=== PATIENT | male | born 1960 | race Caucasian/White ===

== ENCOUNTER 2017-03-28 13:04 | Observation (INO) | payer SELFPAY ==
[2017-03-28] VITALS (9 sets, daily range): BP systolic 147–182; BP diastolic 80–99; PULSE 75–92; RESP 14–20; TEMP 98.1–99; O2SAT 94–99
[~2017-03-28 13:04] MED LIST: ZITH250T PO
--- NOTE | 2017-03-28 13:23 | PD ---
Physical Exam Time Seen by Provider: 13:23 Narrative 56 y/o male with h/a for one week as well as sob and "rapid heart beat" intermittently for the past several days Vital signs reviewed. Seen at triage desk. Awaiting bed placement. Data Data Last Documented VS Vital Signs Date Time Temp Pulse Resp B/P Pulse Ox O2 Delivery O2 Flow Rate FiO2 03/28/17 13:06 98.4 88 20 182/88 99 Room Air [facility] Medical Record Reviewed: Yes Supervised Visit with STELLA: No Johnny Melton Mar 28, 2017 13:23
--- NOTE | 2017-03-28 15:08 | PD ---
HPI Chief Complaint: Headache Time Seen by Provider: 14:41 Travel History International Travel<30 days: No Contact w/Intl Traveler<30days: No Traveled to known affect area: No History of Present Illness HPI 56-year-old male came to the emergency room with history of headache and feeling weak over the past 1 week. Patient says the headache is not severe but just constantly there. It's kind of a fogginess in his head. Today he started getting some palpitations and left-sided chest pain without any radiation. He usually does not get headaches and usually is a very healthy person. However this has been bothering him and finally decided to come to the emergency room to be checked out. He does not have a primary care doctor. He remembers when the headache started he was at work and it was 3 out of 10. It stayed 3 out of 10 since then. He was just sitting and working at the desk. He has been nauseous to some extent but did not vomit. He feels like he is hungry but doesn 't have an appetite. His vital signs were stable. No history of fever, photophobia or neck stiffness. FORMERLY [facility] Past Medical History Narrative Medical List of his past medical, surgical, social and family history is reviewed from the nursing note. Past Surgical History Thoracic Surgery: Yes (JAW SX, L KNEE SCOPE ) Social History Alcohol Use: Yes (SIX PACK DAILY) Tobacco Use: Yes Substance Use: Yes (POT OCC) Allergies-Medications (Allergen,Severity, Reaction): Coded Allergies: Codeine (Verified Allergy, Mild, 03/28/17) Comments List of his allergies reviewed from the nursing note. Reported Meds & Prescriptions Reported Meds & Active Scripts Active Narrative Medication List of his home medications reviewed from the nursing note. Review of Systems Except as stated in HPI: all other systems reviewed are Neg Physical Exam Narrative GENERAL: Awake, alert, mild distress SKIN: Focused skin assessment warm/dry. HEAD: Atraumatic. Normocephalic. EYES: Pupils equal and round. No scleral icterus. No injection or drainage. ENT: No nasal bleeding or discharge. Mucous membranes pink and moist. NECK: Trachea midline. No JVD. CARDIOVASCULAR: Regular rate and rhythm. No murmur appreciated. RESPIRATORY: No accessory muscle use. Clear to auscultation. Breath sounds equal bilaterally. GASTROINTESTINAL: Abdomen soft, non-tender, nondistended. Hepatic and splenic margins not palpable. MUSCULOSKELETAL: No obvious deformities. No clubbing. No cyanosis. No edema. NEUROLOGICAL: Awake and alert. No obvious cranial nerve deficits. Motor grossly within normal limits. Normal speech. PSYCHIATRIC: Appropriate mood and affect; insight and judgment normal. Data Data Last Documented VS Vital Signs Date Time Temp Pulse Resp B/P Pulse Ox O2 Delivery O2 Flow Rate FiO2 03/28/17 17:07 88 15 162/88 98 Room Air 03/28/17 13:06 98.4 Orders Complete Blood Count With Diff (03/28/17 15:12) Basic Metabolic Panel (Bmp) (03/28/17 15:12) Prothrombin Time / Inr (Pt) (03/28/17 15:12) Ct Brain W/O Iv Contrast(Rout) (03/28/17 15:12) Ecg Monitoring (03/28/17 15:12) Iv Access Insert/Monitor (03/28/17 15:12) Oximetry (03/28/17 15:12) Sodium Chloride 0.9% Flush (Ns Flush) (03/28/17 15:15) Prochlorperazine Inj (Compazine Inj) (03/28/17 15:15) Sodium Chlorid 0.9% 500 Ml Inj (Ns 500 M (03/28/17 15:15) Troponin I (03/28/17 15:17) Electrocardiogram (03/28/17 14:36) Admit Order (Ed Use Only) (03/28/17 17:26) Place In Observation (03/28/17:26) Activity Bed Rest With Brp (03/28/17 17:26) Vital Signs (Adult) Q4H (03/28/17 17:) Cardiac Rhythm .As Directed (03/28/17 17:26) Notify Dr: Other .PRN (03/28/17:) Notify Parameters (03/28/17:) Resp Oxygen Nasal Cannula (03/28/17 ) Diet Heart Healthy (03/28/17 Dinner) Ckmb (Isoenzyme) Profile (03/28/17 17:26) Ckmb (Isoenzyme) Profile (03/28/17 20:) Troponin I (03/28/17:) Troponin I (7/20/17 20:26) Electrocardiogram (03/28/17 17:26) Electrocardiogram (03/28/17 20:26) ^ Obtain (03/28/17 17:26) Sodium Chloride 0.9% Flush (Ns Flush) (03/28/17 17:30) Sodium Chloride 0.9% Flush (Ns Flush) (03/28/17 21:00) Acetaminophen (Tylenol) (03/28/17 17:30) Ondansetron Inj (Zofran Inj) (03/28/17 17:30) Nitroglycerin Sl (Nitrostat Sl) (03/28/17 17:30) Real Time Trader / Telemetry ANAHY.Q8H (03/28/17 17:26) CKMB (03/28/17 18:00) CKMB% (03/28/17 18:00) CKMB (03/28/17 20:50) CKMB% (03/28/17 20:50) Labs Laboratory Tests Test 03/28/17 03/28/17 15:33 15:35 Troponin I 0.02 NG/ML White Blood Count 4.0 TH/MM3 Red Blood Count 4.29 MIL/MM3 Hemoglobin 14.6 GM/DL Hematocrit 42.3 % Mean Corpuscular Volume 98.6 FL Mean Corpuscular Hemoglobin 34.1 PG Mean Corpuscular Hemoglobin 34.5 % Concent Red Cell Distribution Width 13.6 % Platelet Count 126 TH/MM3 Mean Platelet Volume 7.0 FL Neutrophils (%) (Auto) 56.5 % Lymphocytes (%) (Auto) 26.0 % Monocytes (%) (Auto) 16.0 % Eosinophils (%) (Auto) 0.5 % Basophils (%) (Auto) 1.0 % Neutrophils # (Auto) 2.2 TH/MM3 Lymphocytes # (Auto) 1.0 TH/MM3 Monocytes # (Auto) 0.6 TH/MM3 Eosinophils # (Auto) 0.0 TH/MM3 Basophils # (Auto) 0.0 TH/MM3 CBC Comment DIFF FINAL Differential Comment Prothrombin Time 10.6 SEC Prothromb Time International 1.0 RATIO Ratio Sodium Level 136 MEQ/L Potassium Level 3.7 MEQ/L Chloride Level 97 MEQ/L Carbon Dioxide Level 29.0 MEQ/L Anion Gap 10 MEQ/L Blood Urea Nitrogen 6 MG/DL Creatinine 0.65 MG/DL Estimat Glomerular Filtration 128 ML/MIN Rate Random Glucose 69 MG/DL Calcium Level 8.8 MG/DL [facility] Medical Decision Making Medical Screen Exam Complete: Yes Emergency Medical Condition: Yes Medical Record Reviewed: Yes Interpretation(s) Twelve-lead EKG was reviewed by me. Sinus rhythm, LVH by voltage criteria, peaked T waves. Heart rate of 68 bpm. Differential Diagnosis Subarachnoid hemorrhage, ACS, non-STEMI, nonspecific headache Narrative Course 5:22 PM blood test results of back and patient has low glucose. The nurses has gone to give him some crackers and orange juice and repeat the blood sugar. Rest of the blood test has come back to be within normal limit. Head CT is within normal limit. Given his chest pain I would prefer to admit him to the chest pain center. His risk factor is his age and smoking history. Procedures EKG Prior to Arrival: No Diagnosis Primary Impression: Chest pain Qualified Code: R07.9 - Chest pain, unspecified type Additional Impressions: Headache Qualified Code: R51 - Acute intractable headache, unspecified headache type Hypoglycemia Admitting Information Admitting Physician Requests: Observation Scripts Lisinopril 10 Mg Tab10 Mg PO DAILY #30 TAB Ref 0 Prov:Patricio Dorado 03/29/17 Uzair Griffith MD Mar 28, 2017 15:08
[2017-03-28] MEDS ORDERED: SODIUM CHLORID 0.9% 500 ML INJ 500 ML IV ONE (15:15)
[2017-03-28] MEDS ORDERED: PROCHLORPERAZINE INJ 10 MG/2 ML VIAL IVP ONE (15:15)
[2017-03-28] MEDS ORDERED: SODIUM CHLORIDE 0.9% FLUSH 10 ML FLUSH IVF PRN (15:15)
[2017-03-28 16:17] LABS: AUTOMATED NEUTROPHIL # 2.2 TH/MM3 (1.8-7.7); EOSINOPHIL % 0.5 % (0.0-4.0); HEMATOCRIT 42.3 % (39.0-51.0); HEMO FLAGS DIFF FINAL; MEAN CELL VOLUME 98.6 FL (80.0-100.0); MEAN CORPUSCULAR HEMOGLOBIN 34.1 PG (27.0-34.0); MEAN CORPUSCULAR HGB CONC 34.5 % (32.0-36.0); NEUT % 56.5 % (16.0-70.0); PLATELET COUNT 126 TH/MM3 (150-450); RED BLOOD COUNT 4.29 MIL/MM3 (4.50-5.90); RED CELL DISTRIBUTION WIDTH 13.6 % (11.6-17.2)
--- NOTE | 2017-03-28 16:25 | RADRPT ---
EXAM DATE/TIME: 03/28/2017 16:11 [facility] COMPARISON: No previous studies available for comparison. INDICATIONS : Headaches with shortness of breath,numbness in arms. RADIATION DOSE: 40.32 CTDIvol (mGy) MEDICAL HISTORY : None SURGICAL HISTORY : Throat sx. ENCOUNTER: Initial ACUITY: 1 day PAIN SCALE: 3/10 LOCATION: Bilateral cranial TECHNIQUE: Multiple contiguous axial images were obtained of the head. Using automated exposure control and adj ustment of the mA and/or kV according to patient size, radiation dose was kept as low as reasonably a chievable to obtain optimal diagnostic quality images. DICOM format image data is available electro nically for review and comparison. FINDINGS: CEREBRUM: The ventricles are normal for age. No evidence of midline shift, mass lesion, hemorrhage or acute in farction. No extra-axial fluid collections are seen. POSTERIOR FOSSA: The cerebellum and brainstem are intact. The 4th ventricle is midline. The cerebellopontine angle i s unremarkable. EXTRACRANIAL: The visualized portion of the orbits is intact. SKULL: The calvaria is intact. No evidence of skull fracture. CONCLUSION: Normal examination. Dima Harry MD on March 28, 2017 at 16:23 Board Certified Radiologist. This report was verified electronically.
[2017-03-28 16:38] LABS: PROTHROMBIN TIME - PATIENT 10.6 SEC (9.8-11.6)
[2017-03-28 16:41] LABS: POTASSIUM 3.7 MEQ/L (3.5-5.1)
[2017-03-28] MEDS ORDERED: SODIUM CHLORIDE 0.9% FLUSH 10 ML FLUSH IV FLUSH PRN (17:30)
[2017-03-28] MEDS ORDERED: NITROGLYCERIN 0.4 MG SL 25 TABS/BTL SL PRN (17:30)
[2017-03-28] MEDS ORDERED: ACETAMINOPHEN 500 MG CPLT PO PRN (17:30)
[2017-03-28] MEDS ORDERED: ONDANSETRON HCL 4 MG/2 ML VIAL IV PRN (17:30)
[2017-03-28] MEDS ORDERED: ALPRAZolam 0.25 MG TAB PO ONE (17:45)
[2017-03-28 20:12] LABS: CKMB 9.8 NG/ML (0.5-3.6)
[2017-03-28] MEDS: SODIUM CHLORIDE 0.9% FLUSH 10 ML FLUSH IV FLUSH SCH (22:04)
[2017-03-28 22:19] LABS: CKMB 8.6 NG/ML (0.5-3.6)
[2017-03-29 00:30] VITALS: PULSE 79
[2017-03-29 03:48] VITALS: PULSE 62
[2017-03-29 05:36] VITALS: BP 156/94; PULSE 89; RESP 18; TEMP 98.4; O2SAT 98
[2017-03-29 07:54] VITALS: BP 159/86; PULSE 68; RESP 18; TEMP 98.4; O2SAT 95
--- NOTE | 2017-03-29 08:12 | HHI.HP ---
HPI Primary Care Physician No Primary Care Physician Chief Complaint Chest pain History of Present Illness Is is a 56-year-old male that presents to ED via private vehicle primary complaint at this time of chest discomfort. However he states that he been having a headache and feeling short of breath a week prior. This is not related to exertion. At the time he was having a discomfort in his chest. He states that yesterday morning he looked a left-sided sharp discomfort in his chest. It is in the upper chest. It lasted a few minutes. It was not associated with shortness of breath. There is no nausea diaphoresis. Rate is a 5 out of 10. It did not recur. He decided abnormal to come to the ED to seek further evaluation. Denies recent illness. Denies recent travel. Denies fevers chills. Review of Systems General: Patient denies fevers, chills recent, and recent travel HEENT: He had a headache. Denies sore throat, difficulty swallowing. Cardiovascular: Has the chest discomfort as mentioned above. Denies sensation of heart beating rapidly or irregularly. No syncope. Denies diaphoresis. Respiratory: Intermittent shortness of breath. Denies inspirational chest discomfort. Denies coughing wheezing or hemoptysis. GI: Patient denies nausea, vomiting, diarrhea, abdominal pain, bloody stools. Musculoskeletal: Patient denies joint pain or edema. Denies calf pain or edema. Neurovascular: Patient denies numbness, tingling, weakness in extremities. Denies headache. Endocrine: Denies polyuria and polydipsia. Hematologic: Denies easy bruising. Skin: Denies rash or itching. Past Family Social History Allergies: Coded Allergies: Codeine (Verified Allergy, Mild, 03/28/17) Past Medical History Tobacco abuse. Denies hypertension, hyperlipidemia, diabetes, and CAD. Past Surgical History Noncontributory. Reported Medications Reported Meds & Active Scripts Active No Active Prescriptions or Reported Medications Active Ordered Medications Current Medications Medications (Trade) Dose Ordered Sig/Oliver Route Start Time Stop Time Status Last Admin (NS Flush) 2 ml UNSCH PRN IVF 03/28/17 15:15 03/28/17 15:36 (NS Flush) 2 ml UNSCH PRN IV FLUSH 03/28/17 17:30 (NS Flush) 2 ml BID IV FLUSH 03/28/17 21:00 03/28/17 22:04 (Tylenol) 500 mg Q4H PRN PO 03/28/17 17:30 (Zofran Inj) 4 mg Q6H PRN IV 03/28/17 17:30 (Nitrostat Sl) 0.4 mg Q5M PRN SL 03/28/17 17:30 Family History Denies family history of CAD. Social History Patient smokes a couple cigarettes a day. Has on average 6 beers per day. Occasional marijuana. Physical Exam Vital Signs Vital Signs Date Time Temp Pulse Resp B/P Pulse Ox O2 Delivery O2 Flow Rate FiO2 03/29/17 05:36 98.4 89 18 156/94 98 03/29/17 03:48 62 03/29/17 00:30 79 03/28/17 23:45 164/84 03/28/17 23:36 98.1 83 18 166/99 97 03/28/17 21:15 75 03/28/17 20:56 99.0 84 14 147/87 94 03/28/17 20:28 98.1 92 18 165/80 95 Room Air 03/28/17 18:14 96 21 03/28/17 17:07 88 15 162/88 98 Room Air 03/28/17 14:45 98 Room Air 03/28/17 13:06 98.4 88 20 182/88 99 Room Air Physical Exam GENERAL: This is a well-nourished, well-developed patient, in no apparent distress. Patient speaks in clear complete sentences. Patient is pleasant. HEENT: Head is atraumatic and normocephalic. Neck is supple without lymphadenopathy and trachea is midline. No JVD or carotid bruits. CARDIOVASCULAR: Regular rate and rhythm without murmurs, gallops, or rubs. RESPIRATORY: Clear to auscultation. Breath sounds equal bilaterally. No wheezes , rales, or rhonchi. Chest wall is nontender. No use of accessory muscles. GASTROINTESTINAL: Abdomen is nontender, nondistended. Abdomen soft. No obvious pulsatile mass or bruit. No CVA tenderness. Strong femoral pulses bilaterally. Normal bowel sounds in all quadrants. MUSCULOSKELETAL: Patient is moving upper and lower extremities freely. No calf tenderness or edema, no Homans sign. Strong pulses in upper and lower extremities. NEUROLOGICAL: Patient is alert and oriented. Cranial nerves 2-12 are grossly intact. No focal deficits and speech is clear. SKIN: No rash and turgor is normal. Laboratory Laboratory Tests Test 03/28/17 03/28/17 03/28/17 03/28/17 15:33 15:35 18:00 20:50 Troponin I 0.02 0.03 0.02 White Blood Count 4.0 Red Blood Count 4.29 Hemoglobin 14.6 Hematocrit 42.3 Mean Corpuscular Volume 98.6 Mean Corpuscular Hemoglobin 34.1 Mean Corpuscular Hemoglobin 34.5 Concent Red Cell Distribution Width 13.6 Platelet Count 126 Mean Platelet Volume 7.0 Neutrophils (%) (Auto) 56.5 Lymphocytes (%) (Auto) 26.0 Monocytes (%) (Auto) 16.0 Eosinophils (%) (Auto) 0.5 Basophils (%) (Auto) 1.0 Neutrophils # (Auto) 2.2 Lymphocytes # (Auto) 1.0 Monocytes # (Auto) 0.6 Eosinophils # (Auto) 0.0 Basophils # (Auto) 0.0 CBC Comment DIFF FINAL Differential Comment Prothrombin Time 10.6 Prothromb Time International 1.0 Ratio Sodium Level 136 Potassium Level 3.7 Chloride Level 97 Carbon Dioxide Level 29.0 Anion Gap 10 Blood Urea Nitrogen 6 Creatinine 0.65 Estimat Glomerular Filtration 128 Rate Random Glucose 69 Calcium Level 8.8 Total Creatine Kinase 545 527 Creatine Kinase MB 9.8 8.6 Creatine Kinase MB % 1.8 1.6 Result Diagram: 03/28/17 1535 03/28/17 1535 Imaging Last [address] 03/28/17 1512 Signed Impressions: Service Date/Time: March 16:11 - CONCLUSION: Normal examination. Dima Harry MD Course EKGs have sinus rhythm without significant ST segment depressions or elevations. Assessment and Plan Assessment and Plan * Chest pain: Patient has had serial cardiac enzymes and EKGs for ruling out purposes. We will get a d-dimer. Chest x-ray is pending. He was seen by Dr. Reagan Arreaga of cardiology and the chest pain center and will likely undergo a Hira protocol ETT. He'll be discharged home if stress test is nonischemic. Patient will need to follow-up with primary care physician. * Tobacco abuse: Patient has been counseled on importance of smoking cessation. Patricio Dorado Mar 29, 2017 08:12
--- NOTE | 2017-03-29 08:21 | RADRPT ---
EXAM DATE/TIME: 03/29/2017 08:04 [facility] COMPARISON: No previous studies available for comparison. INDICATIONS : Chest pain, diaphoresis, lethargic MEDICAL HISTORY : Hypertension. SURGICAL HISTORY : None. ENCOUNTER: Initial ACUITY: 1 day PAIN SCORE: 5/10 LOCATION: Bilateral chest FINDINGS: PA and lateral views of the chest demonstrate the lungs to be symmetrically aerated without evidence of mass, infiltrate or effusion. The cardiomediastinal contours are unremarkable. Osseous structure s are intact. CONCLUSION: No acute disease. Sotero Medrano MD on March 29, 2017 at 8:16 Board Certified Radiologist. This report was verified electronically.
[2017-03-29] MEDS ORDERED: LISINOPRIL 10 MG TAB PO SCH (09:00)
[2017-03-29] MEDS: SODIUM CHLORIDE 0.9% FLUSH 10 ML FLUSH IV FLUSH SCH (09:02)
[2017-03-29 10:32] VITALS: PULSE 74
[2017-03-29] MEDS ORDERED: IOHEXOL 350 MG/ML 10 ML VIAL (for RAD DIAG) IV ONE (11:36)
--- NOTE | 2017-03-29 11:47 | RADRPT ---
EXAM DATE/TIME: 03/29/2017 11:28 [facility] COMPARISON: CHEST PA & LAT, March 29, 2017, 8:04. INDICATIONS : Chest pain with shortness of breath. IV CONTRAST: 60 cc Omnipaque 350 (iohexol) IV RADIATION DOSE: 23.23 CTDIvol (mGy) MEDICAL HISTORY : None SURGICAL HISTORY : None. ENCOUNTER: Initial ACUITY: 2 days PAIN SCALE: 3/10 LOCATION: Left chest TECHNIQUE: Volumetric scanning of the chest was performed using a pulmonary embolism protocol MIP images were re constructed. Using automated exposure control and adjustment of the mA and/or kV according to patien t size, radiation dose was kept as low as reasonably achievable to obtain optimal diagnostic quality images. DICOM format image data is available electronically for review and comparison. Follow-up recommendations for incidentally detected pulmonary nodules are based at a minimum on nodul e size and patient risk factors according to Fleischner Society Guidelines. FINDINGS: There is respiratory motion artifact. PULMONARY ARTERIES: No filling defects are seen in the pulmonary arteries through the segmental level. LUNGS: There is no consolidation or pneumothorax . No concerning pulmonary nodule is visualized. PLEURAE: There is no pleural thickening or pleural effusion. MEDIASTINUM: There is good visualization of the great vessels of the middle mediastinum. No evidence of mediastin al or hilar adenopathy/mass. MUSCULOSKELETAL: Within normal limits for patient age. MISCELLANEOUS: The visualized upper abdominal organs demonstrate no acute abnormality. There is diffuse low-density of the liver. CONCLUSION: 1. Examination quality mildly degraded by respiratory motion artifact. However, no PE is identified. Additionally, no acute finding is identified to explain the clinical symptoms. 2. Hepatic steatosis. Marshall Rodriguez MD on March 29, 2017 at 11:41 Board Certified Radiologist. This report was verified electronically.
[2017-03-29 11:59] VITALS: BP 142/82; PULSE 83; RESP 18; TEMP 98.4; O2SAT 97
[2017-03-29] MEDS ORDERED: LISI10TA3 PO (12:02)
--- NOTE | 2017-03-29 12:03 | HHI.DCPOC ---
Discharge Care Plan Diagnosis: (1) Chest pain (2) Hypoglycemia (3) Headache (4) Tobacco abuse Goals to Promote Your Health * To prevent worsening of your condition and complications * To maintain your health at the optimal level Directions to Meet Your Goals Take your medications as prescribed Follow your dietary instruction Follow activity as directed Keep your appointments as scheduled Take your immunizations and boosters as scheduled If your symptoms worsen call your PCP, if no PCP go to Urgent Care Center or Emergency Room Smoking is Dangerous to Your Health. Avoid second hand smoke Call the 24-hour hour crisis hotline for domestic abuse at Patricio Dorado Mar 29, 2017 12:03
--- NOTE | 2017-03-29 12:45 | EKG ---
Date Performed: 03/28/2017 Time Performed: 20:59:16 PTAGE: 56 years EKG: Sinus rhythm NORMAL ECG PREVIOUS TRACING : 03/28/2017 18.46 Since previous tracing, no significant change noted DOCTOR: Reagan Arreaga Interpretating Date/Time 03/29/2017 12:44:43
--- NOTE | 2017-03-29 12:45 | EKG ---
Date Performed: 03/29/2017 Time Performed: 02:10:52 PTAGE: 56 years EKG: Sinus rhythm NORMAL ECG PREVIOUS TRACING : 03/28/2017 20.59 Since previous tracing, no significant change noted DOCTOR: Reagan Arreaga Interpretating Date/Time 03/29/2017 12:44:31
--- NOTE | 2017-03-29 12:45 | EKG ---
Date Performed: 03/28/2017 Time Performed: 18:46:49 PTAGE: 56 years EKG: Sinus rhythm NORMAL ECG PREVIOUS TRACING : 03/28/2017 14.36 Since previous tracing, no significant change noted DOCTOR: Reagan Arreaga Interpretating Date/Time 03/29/2017 12:44:59
--- NOTE | 2017-03-29 12:46 | EKG ---
Date Performed: 03/28/2017 Time Performed: 14:36:42 PTAGE: 56 years EKG: Sinus rhythm POSSIBLE RIGHT VENTRICULAR CONDUCTION DELAY BORDERLINE ECG NO PREVIOUS TRACING DOCTOR: Reagan Arreaga Interpretating Date/Time 03/29/2017 12:45:14
--- NOTE | 2017-03-29 12:51 | TR ---
Date Performed: 03/29/2017 Time Performed: 09:38:20 DOCTOR: Reagan Arreaga DRUG LIST: CLINICAL HISTORY: CHEST PAIN REASON FOR TEST: REASON FOR ENDING: OBSERVATION: CONCLUSION: PARISH PROTOCOL. NO CP. TEST STOPPED AFTER EXCEEDING GOAL HR SECONDARY TO SOB AND LEG FATIGUE.Maximum XT=035 % Max HR Achieved=93.0% Maximum YQ=218/78 Total Exercise Time=4:11 COMMENTS: Patient exercised using the [place] protocol. No electrocardiographic changes were seen to suggest ischemia. Hemodynamic response to exercise was normal. No significant arrhythmia was prese nt.
== END 2017-03-29 12:39 | disposition home or self-care (01) ==
LOC: NEPD 13:04 → NEDA 17:28 → NEPGCP 20:43
PROVIDERS: ADMIT Internal Medicine Cardiovascular Disease; ATTEND Internal Medicine Cardiovascular Disease
DX: R07.89 Other chest pain (principal); R51 Headache; R06.02 Shortness of breath; E16.2 Hypoglycemia, unspecified; R53.1 Weakness; R00.2 Palpitations; R11.0 Nausea; R20.0 Anesthesia of skin; R61 Generalized hyperhidrosis; R53.83 Other fatigue; I10 Essential (primary) hypertension; K76.0 Fatty (change of) liver, not elsewhere classified; F12.90 Cannabis use, unspecified, uncomplicated; F17.210 Nicotine dependence, cigarettes, uncomplicated
CPT/HCPCS: 70450; 71020; 71275; 80048; 82550; 82552; 84484; 85025; 85379; 85610; 93005; 93017; 96361; 96374; 99285; G0378; J0780; J7040; Q9967